=== PATIENT | female | born 1960 | race Caucasian/White ===

== ENCOUNTER → 2021-07-18 | Outpatient (CLI) | payer BC | LOC: KOH-I 14:37 | DX: M79.642 Pain in left hand (principal); M79.645 Pain in left finger(s); M21.242 Flexion deformity, left finger joints; W19.XXXA Unspecified fall, initial encounter | CPT/HCPCS: 73120 ==

== ENCOUNTER → 2021-09-08 | Day surgery (SDC) | payer BC ==
[~2021-09-08] MED LIST: LOVASTATIN20 MG PO; RABEPRAZOLE SOD20 MG PO
== END | disposition home or self-care (01) ==
LOC: OR 06:30
DX: Z12.11 Encounter for screening for malignant neoplasm of colon (principal); D12.8 Benign neoplasm of rectum; K57.30 Diverticulosis of large intestine without perforation or abscess without bleeding; E78.5 Hyperlipidemia, unspecified; K21.9 Gastro-esophageal reflux disease without esophagitis; M19.90 Unspecified osteoarthritis, unspecified site; E66.9 Obesity, unspecified; Z79.899 Other long term (current) drug therapy; Z68.33 Body mass index [BMI] 33.0-33.9, adult; Z90.710 Acquired absence of both cervix and uterus; Z80.51 Family history of malignant neoplasm of kidney
CPT/HCPCS: J2704; J7030

== ENCOUNTER → 2022-05-11 | Outpatient (CLI) | payer BC | LOC: EMI 13:22 | DX: R51.9 Headache, unspecified (principal) | CPT/HCPCS: 70551 ==